=== PATIENT | female | born 1995 ===

== ENCOUNTER 2017-02-20 19:07 | Emergency (ER) | payer OTHER ==
[2017-02-20 19:53] VITALS: BMI 24.0
--- NOTE | 2017-02-20 20:10 | OBHP ---
Datetime: 02/20/2017 20:04 IP Adm Impression: , intrauterine ; No Active Labor; Intact Membranes IP Admit Plan: Observation/Evaluation; Discharge home Admit Comment, IP Provider: 21-year-old 001 at 34 weeks and 6 days gestational age presents to the ED complaining of contractions. Patient denies any vaginal bleeding or leakage of fluids. Patien t reports good movement. Otherwise, patient without complaints. records reviewed. Review of systems: Patient denies any fevers, chills, changes in weight, nausea, vomiting, diarrhe a, constipation, dysuria, urinary frequency, hematuria, abdominal pain, headaches. Past medical history none Past surgical history none Medications vitamins Allergies: Penicillin Obstetrical history full-term normal spontaneous vaginal delivery 1 Social history no tobacco, no alcohol, no drugs Physical exam: Deferred physical exam findings Assessment: 21-year-old 001 at 34 weeks gestational age with complaints of contractions. No evidence of contractions or labor at this time. Maternal well-being and well-being reassuring at is time. Plan: Check urinalysis Urinalysis negative and heart tracing remains reactive and no signs of labor, plan t o discharge home. Patient will follow up with office as already scheduled. Pelvic Type - PN: Adequate Extremities - PN: Normal Abdomen - PN: Normal Back - PN: Normal Breast - PN: Normal Lungs - PN: Normal Heart - PN: Normal Thyroid - PN: Normal Neurologic - PN: Normal HEENT - PN: Normal General - PN: Normal FHR - Baseline A Provider: 120s-130s Membranes, Provider: Intact Pool Provider: Negative EGA AdmitDate IP: 34.6 Vital Signs Provider: Reviewed; Within Normal Limits IP Chief Complaint: Uterine contractions NICHD Variability Prov Fetus A: Moderate 6-25bpm NICHD Accel Fetus A IP Provider: 15X15 FHR Category Provider Fetus A: Category I NICHD Decel Fetus A IP Provider: None Dilatation, Provider: 0 Effacement, Provider: 0 Station, Provider: -4 Genitourinary Exam: Normal DTRs - PN: Normal
[2017-02-20 20:51] LABS: SQUAMOUS EPITHIAL 1 /hpf (0-5); URINE BACTERIA RARE (<OCC); URINE BILIRUBIN NEGATIVE (NEGATIVE); URINE BLOOD NEGATIVE (NEGATIVE); URINE CLARITY CLEAR (Clear); URINE COLOR STRAW (YELLOW); URINE GLUCOSE (UA) 50 mg/dL (Normal); URINE LEUKOCYTE ESTERASE NEG Leu/uL (Negative); URINE NITRATE NEGATIVE (NEGATIVE); URINE PROTEIN NEGATIVE (NEGATIVE); URINE UROBILINOGEN 0.2-1.0 mg/dL (0.2-1.0)
== END 2017-02-20 21:00 | disposition home or self-care (01) ==
LOC: H.EROB2 19:07
DX: O47.03 False labor before 37 completed weeks of gestation, third trimester (principal); Z3A.34 34 weeks gestation of pregnancy

== ENCOUNTER → 2017-03-11 | Emergency (ER) | payer OTHER ==
[2017-02-20 19:53] VITALS: BMI 24.0
== END | disposition home or self-care (01) ==
LOC: H.EROB2 21:48
DX: O47.1 False labor at or after 37 completed weeks of gestation (principal); Z3A.37 37 weeks gestation of pregnancy; O26.853 Spotting complicating pregnancy, third trimester

== ENCOUNTER 2017-03-18 19:57 | Inpatient (IN) | payer OTHER ==
--- NOTE | 2017-03-18 20:07 | OBHP ---
Datetime: 03/11/2017 22:26 IP Adm Impression: Term, intrauterine IP Admit Plan: Observation/Evaluation; Discharge home Admit Comment, IP Provider: This is a 21 y/o at 37.5 weeks of GA with a DESTINEY 03/27/17 by LMP con firmed with 1st trim US, complining of vaginal spotting and abdominal cramping since this morning. Pt reports associated regular non-bloody mucous discharge. Pt was at his PNC with Dr Horan today an d was reported she was 1 cm dilated. Next appt: in 1 week. Reports + FM. Pt denies fever, H/A, visual disturbances, CP, SOB, vaginal profuse bleeding, regular CTX or LOF. Allergies: Penicillin-rash reaction. Medications: PNV. PMHx: denied. PSHx: denied. CARLOS: at 41 weeks GA, 4 years ago. SHx: No tobacco, alcohol or recreational drug use. A_P: IUP at 37.5 weeks GA with vaginal spotting and abdominal cramping. Pt stable, tolerating PO, FHT reassuring, pt will be discharged. Labor instructions reviewed with pt. Case discussed with OB supervisor dehydrogenation Dr Barkley. Mario Ch PGY-1 OB Hospitalist note: This pt was seen and examined by me. Agree with above note. LILA Her description is of bloody show. Currently no VB noted. She is comfortable Pelvic Type - PN: Adequate Extremities - PN: Normal Abdomen - PN: Normal Back - PN: Normal Lungs - PN: Normal Heart - PN: Normal Thyroid - PN: Not Done Neurologic - PN: Normal HEENT - PN: Normal General - PN: Normal Presentation-Admit: Vertex FHR - Baseline A Provider: 120 Membranes, Provider: Intact Comments, ACOG Physical Exam: ROS: General: no weakness; no fatigue HEENT: no [place]; no visual dist CV: no palpitations; no no CP GI: noN/V no diarhea No epigastric pain; non radiating : no F/U/D MS: No joint pain Gestation - Est Wks by US: 37.5 Pool Provider: Negative IP Hx Assessment: The History has been Reviewed and is Current EGA AdmitDate IP: 37.4 Vital Signs Provider: Reviewed IP Chief Complaint: Vaginal bleeding NICHD Variability Prov Fetus A: Moderate 6-25bpm NICHD Accel Fetus A IP Provider: 15X15 FHR Category Provider Fetus A: Category I Dilatation, Provider: 1 Effacement, Provider: 0
[2017-03-18 20:12] VITALS: BMI 25.1
[2017-03-18 20:58] LABS: BASO % 0.3 % (0.0-2.0); EOS % 0.1 % (0.0-4.0); HEMOGLOBIN 13.2 g/dL (12.0-16.0); LYMPH # 1.7 K/uL (1.0-4.3); LYMPH % 14.4 % (20.0-40.0); MEAN CELL VOLUME 87.5 fl (81.0-99.0); MEAN CORPUSCULAR HEMOGLOBIN 28.5 pg (27.0-31.0); MEAN CORPUSCULAR HGB CONC 32.6 g/dL (33.0-37.0); MEAN PLATELET VOLUME 8.9 fl (7.2-11.7); MONO # 0.9 K/uL (0.0-0.8); MONO % 7.1 % (0.0-10.0); NEUT # 9.5 K/uL (1.8-7.0); NEUT % 78.1 % (50.0-75.0); RBC 4.64 Mil/uL (3.80-5.20); RED CELL DISTRIBUTION WIDTH 16.2 % (11.5-14.5); WHITE BLOOD COUNT 12.1 K/uL (4.8-10.8)
--- NOTE | 2017-03-18 22:04 | OBADHP ---
Datetime: 03/18/2017 21:57 Admit Comment, IP Provider: IUP at 38w sent for IOL [place]. No CTX; no VB +FM care: CP Dr Centeno- chart rev'd PMH: denies PSH: denies Allergy PCN POBGYNH: x 1 No STD A: IUP at 39w [place] PLAN: Admit Discussion with pt abotu IOL, medications, labor delivery, and care...will start Cervid il intravaginally Pelvic Type - PN: Adequate Extremities - PN: Normal Abdomen - PN: Normal Back - PN: Normal Breast - PN: Not Done Lungs - PN: Normal Heart - PN: Normal Thyroid - PN: Normal Neurologic - PN: Normal HEENT - PN: Normal General - PN: Normal Presentation-Admit: Vertex FHR - Baseline A Provider: 130 Membranes, Provider: Intact Pool Provider: Negative IP Hx Assessment: The History has been Reviewed and is Current IP Chief Complaint: Other NICHD Variability Prov Fetus A: Moderate 6-25bpm NICHD Accel Fetus A IP Provider: 15X15 FHR Category Provider Fetus A: Category I NICHD Decel Fetus A IP Provider: None Genitourinary Exam: Normal DTRs - PN: Normal EGA AdmitDate IP: 38.4 IP Adm Impression: Term, intrauterine ; No Active Labor; Intact Membranes IP Admit Plan: Admit to unit; Initiate labor induction protocol Datetime: 03/11/2017 22:26 Comments, ACOG Physical Exam: ROS: General: no weakness; no fatigue HEENT: no [place]; no visual dist CV: no palpitations; no no CP GI: noN/V no diarhea No epigastric pain; non radiating : no F/U/D MS: No joint pain Gestation - Est Wks by US: 37.5 Vital Signs Provider: Reviewed Dilatation, Provider: 1 Effacement, Provider: 0 Datetime: 02/20/2017 20:04 Station, Provider: -4
[2017-03-19] MEDS ORDERED: Lidocaine 1% Inj (20ml) ONE (01:22)
[2017-03-19] MEDS ORDERED: Fentanyl/Bupivacaine HCl 250 ML EPI ONE (01:57)
[2017-03-19] MEDS ORDERED: Oxytocin 30 units/LR 500ML 30 U/500 ML BAG IV SCH ×2 (07:54→08:31)
--- NOTE | 2017-03-19 08:32 | OBPN ---
Datetime: 03/19/2017 08:00 IP Progress Impression: Normal progression of labor; Reassuring heart rate IP Informed Consent Obtain: Vaginal Delivery; Risks, Benefits and Alternatives Discussed IP Progress Plan: Continue present management; Augmentation Pool Provider: Negative Membranes, Provider: Intact Presentation-Admit: Vertex IP Progress Note Comment: Notified last nigth that she wanted epidural...Cervidil was left in place. This morning at 4am, she was 4cm dilated. She feels comfortable. A: latent phase of labor PLAN: Cervidil removed and will start Pitocin augmentatoin FHR Category Provider Fetus A: Category I Dilatation, Provider: 4 Datetime: 03/18/2017 21:57 FHR - Baseline A Provider: 130 NICHD Accel Fetus A IP Provider: 15X15 NICHD Variability Prov Fetus A: Moderate 6-25bpm NICHD Decel Fetus A IP Provider: None Datetime: 03/11/2017 22:26 Gestation - Est Wks by US: 37.5 Vital Signs Provider: Reviewed Effacement, Provider: 0 Datetime: 02/20/2017 20:04 Station, Provider: -4
[2017-03-19] MEDS ORDERED: Oxycodone/Acetaminophen 5/325 mg Tab PO PRN ×4 (11:45→15:57)
--- NOTE | 2017-03-19 16:45 | OBDS ---
[facility]IV[facility]ERSON[employer] Delivery Doctor: Eduardo Horan MD Engineering Professor: Comfort Simms RN Anesthesiologist: Karen Mercedes MD MATERNAL INFORMATION Delivery Anesthesia: Epidural Medications in Delivery: pitocin 20units in 1L Estimated Blood Loss (ml): 250 Placenta Cultured: No Maternal Complications: None Provider Comments: Delivered live baby boy the baby was bulb suctioned on the perineum and transferr ed to the maternal chest the cord was clamped and cut and 3 vessels noted a cord blood was obtained a nd sent to the lab. The placenta was delivered spontaneously 3 vessels noted. There were no vaginal l acerations. The mother tolerated the procedure well and the baby went to well baby nursery with s of 9 and 9 LABOR SUMMARY EDC: 03/28/2017 00:00 No. Babies in Womb: 1 Attempted: No Labor Anesthesia: None LABOR INFORMATION Reason for Induction: Other Reason for Induction Other: Anhydramnios Onset of Labor: 03/19/2017 03:00 Complete Dilatation: 03/19/2017 11:22 Cervical Ripening Agents: Cervidil (Annotations: placed by dr ryan at 22:05) Oxytocin: N/A Group B Beta Strep: Negative Antibiotics # of Doses: 0 Steroids Given: None Reason Steroids Not Administered: Not Applicable MEMBRANES Membranes Rupture Method: Artificial Rupture of Membranes: 03/19/2017 08:50 Length of Rupture (hrs): 2.68 Amniotic Fluid Color: Clear Amniotic Fluid Amount: Small Amniotic Fluid Odor: Normal STAGES OF LABOR Stage 1 hrs: 8 Stage 1 min: 22 Stage 2 hrs: 0 Stage 2 min: 9 Stage 3 hrs: 0 Stage 3 min: 4 Total Time in Labor hrs: 8 Total Time in Labor min: 35 VAGINAL DELIVERY Episiotomy: None Laceration Extension: N/A Laceration Type: None Laceration Repair: Not Applicable Sponge Count Correct: Yes Sharps Count Correct: N/A BABY A INFORMATION Infant Delivery Date/Time: 03/19/2017 11:31 Method of Delivery: Vaginal Born in Route : No : N/A Forceps: N/A Vacuum Extraction: N/A Shoulder Dystocia : No SHOULDER DYSTOCIA BABY A Delivery Date/Time: 03/19/2017 11:31 PRESENTATION/POSITION BABY A Presentation: Cephalic Cephalic Presentation: Vertex Breech Presentation: N/A PLACENTA INFORMATION BABY A Placenta Delivery Time : 03/19/2017 11:35 Placenta Method of Delivery: Spontaneous Placenta Status: Delivered SCORES BABY A Heart Rate 1 min: >100 bpm Resp Effort 1 min: Good Cry Reflex Irritability 1 min: Cough or Sneeze or Pulls Away Muscle Tone 1 min: Active Motion Color 1 min: Body [place], Extremities Blue Resuscitation Effort 1 min: N/A SCORE 1 MIN: 9 Heart Rate 5 min: >100 bpm Resp Effort 5 min: Good Cry Reflex Irritability 5 min: Cough or Sneeze or Pulls Away Muscle Tone 5 min: Active Motion Color 5 min: Body [place], Extremities Blue Resuscitation Effort 5 min: N/A SCORE 5 MIN: 9 INFANT INFORMATION BABY A Gestational Age at Delivery: 38.5 Gestational Status: Term Outcome : Liveborn Infant Condition : Stable Infant Sex: Male WEIGHT/LENGTH BABY A Infant Birthweight (gms): 2920 Weight (lb): 6 Infant Weight (oz): 7 CORD INFORMATION BABY A No. Cord Vessels: 3 Nuchal Cord : Around Neck x1, Loose Suction: Mouth; Nose
[2017-03-20 05:59] LABS: HEMOGLOBIN 9.9 g/dL (12.0-16.0); MEAN CELL VOLUME 89.3 fl (81.0-99.0); MEAN CORPUSCULAR HEMOGLOBIN 29.4 pg (27.0-31.0); MEAN CORPUSCULAR HGB CONC 32.9 g/dL (33.0-37.0); RBC 3.37 Mil/uL (3.80-5.20); RED CELL DISTRIBUTION WIDTH 16.9 % (11.5-14.5)
--- NOTE | 2017-03-20 08:34 | OBPPN ---
Datetime: 03/20/2017 08:29 PP Pain Prov: Within normal limits PP Abdomen/Uterus Prov: Normal PP Lochia Prov: Normal PP Progress Prov: Normal PP Impression Prov: Normal progression PP Plan Prov: Continue present management PP Progress Note Prov: PPD 1 s/p , doing well, breast and bottle feeding Continue current management Vital Signs Provider PP: Reviewed; Within Normal Limits
--- NOTE | 2017-03-21 07:55 | OBPPN ---
Datetime: 03/21/2017 07:51 PP Pain Prov: Within normal limits PP Abdomen/Uterus Prov: Normal PP Lochia Prov: Normal PP Extremities Prov: Normal PP Progress Prov: Normal PP Impression Prov: Normal progression PP Plan Prov: Discharge PP Progress Note Prov: PPD 2 s/p , doing well, breast and bottle feeding Rx's motrin and ferrous sulfate given to pt Discharge home today Vital Signs Provider PP: Reviewed; Within Normal Limits
--- NOTE | 2017-03-21 07:57 | OBDCSUM ---
Datetime: 03/21/2017 07:54 Discharged to, Provider: Home Follow up at, Provider: Dr. Horan Disch Instr Activity: Normal activity; May Shower Disch Instr Diet: Regular Discharge Instructions, Provider: Routine instructions given Discharge Diagnosis, Provider: Term Delivered Discharge Time: 03/21/2017 07:54 Follow up in weeks, Provider: 6 weeks Disch Activity Restrictions: No exercising; No lifting; No sexual activity; Nothing in vagina - Inte rcourse, tampons, douche
[2017-03-22 02:56] VITALS: BP 101/67; PULSE 72; RESP 18; TEMP 97.5; O2SAT 98
== END 2017-03-21 15:00 | disposition home or self-care (01) | DRG 775 ==
LOC: H.EROB2 19:57 → H.L&D 20:12 → H.OB/GYN 03-19 15:35
PROVIDERS: ADMIT Obstetrics & Gynecology; ATTEND Obstetrics & Gynecology
PROC: 10E0XZZ Delivery of Products of Conception, External Approach (ICD-10-PCS; principal; 2017-03-18)
PROC: 4A1HXCZ Monitoring of Products of Conception, Cardiac Rate, External Approach (ICD-10-PCS; 2017-03-18)
DX: O69.81X0 Labor and delivery complicated by cord around neck, without compression, not applicable or unspecified (principal); O41.03X0 Oligohydramnios, third trimester, not applicable or unspecified; Z37.0 Single live birth; Z3A.38 38 weeks gestation of pregnancy